=== PATIENT | female | born 1945 | race Two or more races ===

== ENCOUNTER 2021-01-06 06:46 | Day surgery (SDC) | payer OTHER ==
[~2021-01-06] VITALS: Ht 165.1 cm; Wt 104.3 kg
[~2021-01-06 06:46] MED LIST: ALPR0.254 PO; AMLO-489 PO; ASPI1TAB19 PO; ATOR20TA PO; HYDR-4296 PO; ISOS10TA2 PO; LISI40TA11 PO; METO-289 PO
[2021-01-06] MEDS ORDERED: MIDAZOLAM HCL 1MG/1ML-2 ML VIAL IV ONE (07:45)
[2021-01-06] MEDS ORDERED: LIDOCAINE VISCOUS 2% 15ML UD PO ONE (07:45)
[2021-01-06] MEDS ORDERED: diphenhdrAMINE HCL 50 MG/1 ML VL IV ONE (07:45)
[2021-01-06] MEDS ORDERED: fentaNYL CITRATE 100 MCG/2 ML VL IV ONE (07:45)
== END 2021-01-06 10:20 | disposition home or self-care (01) ==
LOC: CATH 06:46
PROVIDERS: ATTEND Internal Medicine Cardiovascular Disease
DX: Z01.810 Encounter for preprocedural cardiovascular examination (principal); I10 Essential (primary) hypertension; E78.5 Hyperlipidemia, unspecified; E66.9 Obesity, unspecified; Z87.891 Personal history of nicotine dependence; Z79.899 Other long term (current) drug therapy; Z79.82 Long term (current) use of aspirin; Z68.38 Body mass index [BMI] 38.0-38.9, adult; Z20.822 Contact with and (suspected) exposure to COVID-19
CPT/HCPCS: 93312; J2250; J3010; U0003; 99152

== ENCOUNTER 2021-01-08 06:48 | Day surgery (SDC) | payer OTHER ==
[~2021-01-08] VITALS: Ht 165.1 cm; Wt 104.3 kg
[2021-01-08] MEDS ORDERED: IODIXANOL 320MG/ML 100ML BTL IV ONE (07:32)
[2021-01-08] MEDS ORDERED: LIDOCAINE 2%HCL (LOCAL ANESTH.) INJ 20ML MDV ONE (07:32)
[2021-01-08] MEDS ORDERED: SODIUM CHL 0.9% 0 ML ONE (07:51)
[2021-01-08] MEDS ORDERED: ANGIOMAX 250 MG VIAL IV ONE (07:51)
[2021-01-08] MEDS ORDERED: fentaNYL CITRATE 100 MCG/2 ML VL ONE (07:51)
[2021-01-08] MEDS ORDERED: MIDAZOLAM HCL 1MG/1ML-2 ML VIAL ONE (07:51)
[2021-01-08] MEDS ORDERED: IOHEXOL 350 MG/ML 100ML IJ ONE (07:52)
[2021-01-08] MEDS ORDERED: VERAPAMIL 2.5MG/ML INJ 2ML VIAL IV ONE (07:52)
[2021-01-08] MEDS ORDERED: HEPARIN SODIUM (PORCINE) 5000 UNITS/ML 1ML VIAL ONE (07:52)
[2021-01-08] MEDS ORDERED: ONDANSETRON HCL 4 MG/2 ML VIAL ONE (08:14)
== END 2021-01-08 11:05 | disposition home or self-care (01) ==
LOC: CATH 06:48
PROVIDERS: ATTEND Internal Medicine Cardiovascular Disease
DX: R07.89 Other chest pain (principal); Z98.890 Other specified postprocedural states; Z79.899 Other long term (current) drug therapy; Z88.8 Allergy status to other drugs, medicaments and biological substances; Z88.5 Allergy status to narcotic agent; Z88.1 Allergy status to other antibiotic agents; Z88.2 Allergy status to sulfonamides; Z68.37 Body mass index [BMI] 37.0-37.9, adult
CPT/HCPCS: 93454; C1769; C1887; C1894; J1644; J2250; J2405; J3010; J7040; Q9967; 99152

== ENCOUNTER 2023-10-10 15:48 | Inpatient (IN) | payer OTHER ==
[~2023-10-10] VITALS: Ht 165.1 cm; Wt 163.0 kg
[~2023-10-10 15:48] MED LIST changes: -AMLO-489 PO; +AMLO1TAB22 PO; -HYDR-4296 PO; +HYDR25TA88 PO; -LISI40TA11 PO; +LISI40TA16 PO
[2023-10-10 16:32] LABS: Basophils # (auto) 0 10 ^3/uL (0-0.2); Basophils % (auto) 0.5 % (0.0-2.0); Eosinophils # (auto) 0.2 10 ^3/uL (0-0.8); Eosinophils % (auto) 2.5 % (0.0-7.0); Hemoglobin 10.8 g/dL (12.2-16.2); Lymphocytes # (auto) 1.7 10 ^3/uL (0.4-5.4); Lymphocytes % (auto) 19.9 % (10.0-50.0); Mean Corpuscular Hemoglobin 29.2 pg (28.0-32.0); Mean Corpuscular Hgb Conc. 31.8 g/dL (32.0-36.0); Monocytes # (auto) 0.7 10 ^3/uL (0-1.3); Monocytes % (auto) 8.4 % (0.0-12.0); Neutrophils # (auto) 5.7 10 ^3/uL (1.6-8.6); Neutrophils % (auto) 68.7 % (37.0-80.0); Red Cell Distribution Width 13.8 % (11.8-14.3); White Blood Cell 8.3 10^3/uL (4.4-10.8)
[2023-10-10 16:52] LABS: Alanine Aminotransferase 19 U/L (7-40); Albumin 4.2 g/dL (3.2-4.8); Alkaline Phosphatase 79 U/L (46-116); Anion Gap 8 (5-15); Aspartate Aminotransferase 16 U/L (13-40); BUN/Creatinine Ratio 18.5 (10.0-20.0); Blood Urea Nitrogen 17 mg/dL (9-23); Calcium 9.7 mg/dL (8.7-10.4); Carbon Dioxide 28 mmol/L (20-30); Chloride 105 mmol/L (98-107); Glucose 101 mg/dL (74-106); Magnesium 1.9 mg/dL (1.6-2.6); Potassium 4.4 mmol/L (3.5-5.1); Sodium 141 mmol/L (136-145)
[2023-10-10 16:53] LABS: Bilirubin, Total 0.5 mg/dL (0.2-1.0); Total Protein 6.6 g/dL (5.7-8.2)
[2023-10-10 20:56] LABS: Urine Bacteria NONE SEEN /hpf (None Seen); Urine Blood Negative /uL (Negative); Urine Clarity Clear (Clear); Urine Color Colorless (Yellow); Urine Protein, UAD 1+ (Negative); Urine Specific Gravity 1.009 (1.001-1.035); Urine Urobilinogen Normal (Negative); Urine WBC 5 /hpf (0 - 5)
[2023-10-10] MEDS ORDERED: MORPHINE SULFATE INJ 2 MG/ml SYRG IV PRN ×2 (21:45)
[2023-10-10] MEDS ORDERED: DOCUSATE SOD 100 MG CAP PO PRN (21:45)
[2023-10-10] MEDS ORDERED: NITROGLYCERIN 0.4 MG SL TAB SL PRN (21:45)
[2023-10-11] VITALS (11 sets, daily range): BP systolic 107–146; BP diastolic 39–58; PULSE 50–80; RESP 16–24; TEMP 97.2–97.8; O2SAT 94–98
[2023-10-11] MEDS: cefTRIAXone 1GM/50ML D5W 50 ML IV SCH (00:48)
[2023-10-11] MEDS: ACETAMINOPHEN 325 MG TAB PO PRN (00:48)
[2023-10-11] MEDS: NITROGLYCERIN 2% OINT 1GM PKG TD ONE (00:58)
[2023-10-11] MEDS ORDERED: cloNIDine HCL 0.1 MG TAB PO PRN (02:00)
[2023-10-11] MEDS: hydrALAZINE HCL 20 MG/ML VL IV PRN (02:04)
[2023-10-11 06:09] LABS: Basophils # (auto) 0 10 ^3/uL (0-0.2); Basophils % (auto) 0.3 % (0.0-2.0); Eosinophils # (auto) 0.2 10 ^3/uL (0-0.8); Eosinophils % (auto) 1.7 % (0.0-7.0); Hematocrit 31.2 % (36.0-46.0); Hemoglobin 10.1 g/dL (12.2-16.2); Lymphocytes # (auto) 1.1 10 ^3/uL (0.4-5.4); Lymphocytes % (auto) 12.4 % (10.0-50.0); Mean Corpuscular Hemoglobin 29.4 pg (28.0-32.0); Mean Corpuscular Hgb Conc. 32.5 g/dL (32.0-36.0); Mean Corpuscular Volume 90.6 fL (80.0-100.0); Monocytes # (auto) 0.7 10 ^3/uL (0-1.3); Monocytes % (auto) 7.6 % (0.0-12.0); Nucleated Red Blood Cells % 0.2 %; Red Blood Cells 3.44 10^6/uL (4.0-5.20); Red Cell Distribution Width 13.4 % (11.8-14.3); White Blood Cell 8.9 10^3/uL (4.4-10.8)
[2023-10-11 06:19] LABS: Chloride 105 mmol/L (98-107); Sodium 139 mmol/L (136-145)
[2023-10-11 06:20] LABS: Anion Gap 7 (5-15); Calcium 9.5 mg/dL (8.7-10.4); Carbon Dioxide 27 mmol/L (20-30)
[2023-10-11 06:25] LABS: BUN/Creatinine Ratio 21.3 (10.0-20.0); Blood Urea Nitrogen 17 mg/dL (9-23); Glucose 100 mg/dL (74-106)
[2023-10-11 08:10] LABS: INR 1.14 (0.9-1.15); Partial Thromboplastin Time 30.5 SEC (24.5-34.5); Prothrombin Time 11.9 sec (9.3-11.8)
[2023-10-11] MEDS: ASPirin 81 mg TAB PO SCH (09:46)
[2023-10-11] MEDS: ENOXAPARIN SOD 40 MG/0.4 ML SYRINGE SC SCH (09:46)
[2023-10-11] MEDS: METOPROLOL SUCCINATE XL 50 MG TAB PO SCH (09:48)
[2023-10-11] MEDS: LIDOCAINE 2%HCL (LOCAL ANESTH.) INJ 20ML MDV ONE (12:05)
[2023-10-11] MEDS: IODIXANOL 320MG/ML 100ML BTL IV ONE (12:06)
[2023-10-11] MEDS: fentaNYL CITRATE 100 MCG/2 ML VL ONE (12:21)
[2023-10-11] MEDS: VERAPAMIL 2.5MG/ML INJ 2ML VIAL IV ONE (12:21)
[2023-10-11] MEDS: MIDAZOLAM HCL 2MG/2ML 2ml VIAL (1mg/ml) ONE (12:22)
[2023-10-11] MEDS: hydrALAZINE HCL 20 MG/ML VL ONE (12:53)
[2023-10-11] MEDS: ONDANSETRON HCL 4 MG/2 ML VIAL ONE (12:53)
[2023-10-11] MEDS: HEPARIN SODIUM (PORCINE) 5000 UNITS/ML 1ML VIAL ONE (12:53)
[2023-10-11] MEDS: ONDANSETRON HCL 4 MG/2 ML VIAL IV PRN (20:10)
[2023-10-12] VITALS (7 sets, daily range): BP systolic 119–154; BP diastolic 49–71; PULSE 49–56; RESP 16–20; TEMP 97.7–98.6; O2SAT 91–98
[2023-10-12] MEDS: ATORVASTATIN 20 MG TAB PO SCH (05:47)
[2023-10-12 05:59] LABS: Basophils # (auto) 0 10 ^3/uL (0-0.2); Basophils % (auto) 0.4 % (0.0-2.0); Eosinophils # (auto) 0.1 10 ^3/uL (0-0.8); Eosinophils % (auto) 1.3 % (0.0-7.0); Hematocrit 30.1 % (36.0-46.0); Hemoglobin 9.7 g/dL (12.2-16.2); Lymphocytes # (auto) 1.1 10 ^3/uL (0.4-5.4); Lymphocytes % (auto) 15.1 % (10.0-50.0); Mean Corpuscular Hemoglobin 29.9 pg (28.0-32.0); Mean Corpuscular Hgb Conc. 32.3 g/dL (32.0-36.0); Mean Corpuscular Volume 92.5 fL (80.0-100.0); Monocytes # (auto) 0.8 10 ^3/uL (0-1.3); Monocytes % (auto) 10.8 % (0.0-12.0); Neutrophils # (auto) 5.5 10 ^3/uL (1.6-8.6); Neutrophils % (auto) 72.4 % (37.0-80.0); Red Blood Cells 3.25 10^6/uL (4.0-5.20); Red Cell Distribution Width 13.7 % (11.8-14.3); White Blood Cell 7.5 10^3/uL (4.4-10.8)
[2023-10-12 06:01] LABS: Chloride 105 mmol/L (98-107); Potassium 4.4 mmol/L (3.5-5.1); Sodium 138 mmol/L (136-145)
[2023-10-12 06:02] LABS: Anion Gap 6 (5-15); Calcium 9.4 mg/dL (8.7-10.4); Carbon Dioxide 27 mmol/L (20-30)
[2023-10-12 06:07] LABS: BUN/Creatinine Ratio 16.4 (10.0-20.0); Blood Urea Nitrogen 19 mg/dL (9-23); Glucose 83 mg/dL (74-106)
[2023-10-12] MEDS ORDERED: LISI20TA56 PO (14:17)
[2023-10-12] MEDS ORDERED: GABA-1308 PO (14:18)
[2023-10-13] VITALS (13 sets, daily range): BP systolic 124–168; BP diastolic 52–90; PULSE 50–76; RESP 14–18; TEMP 97.8–98.5; O2SAT 90–98
[2023-10-13 06:50] LABS: Basophils # (auto) 0 10 ^3/uL (0-0.2); Basophils % (auto) 0.6 % (0.0-2.0); Eosinophils # (auto) 0.2 10 ^3/uL (0-0.8); Eosinophils % (auto) 2.6 % (0.0-7.0); Hematocrit 30.7 % (36.0-46.0); Lymphocytes # (auto) 1.7 10 ^3/uL (0.4-5.4); Mean Corpuscular Hemoglobin 29.8 pg (28.0-32.0); Mean Corpuscular Hgb Conc. 32.4 g/dL (32.0-36.0); Mean Corpuscular Volume 92.1 fL (80.0-100.0); Monocytes # (auto) 0.8 10 ^3/uL (0-1.3); Monocytes % (auto) 10.7 % (0.0-12.0); Neutrophils # (auto) 4.5 10 ^3/uL (1.6-8.6); Neutrophils % (auto) 62.1 % (37.0-80.0); Red Blood Cells 3.34 10^6/uL (4.0-5.20); Red Cell Distribution Width 13.5 % (11.8-14.3); White Blood Cell 7.3 10^3/uL (4.4-10.8)
[2023-10-13 06:52] LABS: Chloride 104 mmol/L (98-107); Potassium 4.3 mmol/L (3.5-5.1); Sodium 137 mmol/L (136-145)
[2023-10-13 06:53] LABS: Anion Gap 5 (5-15); Carbon Dioxide 28 mmol/L (20-30)
[2023-10-13 06:54] LABS: Calcium 9.3 mg/dL (8.7-10.4)
[2023-10-13 06:59] LABS: BUN/Creatinine Ratio 19.2 (10.0-20.0); Blood Urea Nitrogen 24 mg/dL (9-23); Glucose 98 mg/dL (74-106)
[2023-10-13] MEDS: fentaNYL CITRATE 100 MCG/2 ML VL ONE (12:57)
[2023-10-13] MEDS: VANCOMYCIN HCL 1000 MG VL ONE (12:57)
[2023-10-13] MEDS: VANCOMYCIN 1GM/200ML 200 ML IV ONE (12:58)
[2023-10-13] MEDS: LIDOCAINE 2%HCL (LOCAL ANESTH.) INJ 20ML MDV ONE (12:58)
[2023-10-13] MEDS: MIDAZOLAM HCL 2MG/2ML 2ml VIAL (1mg/ml) ONE (12:58)
[2023-10-13] MEDS: ONDANSETRON HCL 4 MG/2 ML VIAL ONE (13:31)
[2023-10-13] MEDS: METOPROLOL TARTRATE 1MG/1ML-5ML VIAL IV ONE (14:04)
[2023-10-13] MEDS: hydrALAZINE HCL 20 MG/ML VL ONE (14:19)
[2023-10-14] MEDS: HYDROcodone-ACET 5/325MG TAB PO PRN (02:15)
[2023-10-14 05:15] VITALS: BP 134/47; PULSE 71; RESP 18; TEMP 98; O2SAT 93
[2023-10-14 07:39] LABS: Basophils # (auto) 0 10 ^3/uL (0-0.2); Basophils % (auto) 0.4 % (0.0-2.0); Eosinophils # (auto) 0.1 10 ^3/uL (0-0.8); Eosinophils % (auto) 0.8 % (0.0-7.0); Hematocrit 30.3 % (36.0-46.0); Hemoglobin 9.6 g/dL (12.2-16.2); Lymphocytes # (auto) 0.7 10 ^3/uL (0.4-5.4); Lymphocytes % (auto) 9.1 % (10.0-50.0); Mean Corpuscular Hemoglobin 29.8 pg (28.0-32.0); Mean Corpuscular Hgb Conc. 31.9 g/dL (32.0-36.0); Mean Corpuscular Volume 93.4 fL (80.0-100.0); Monocytes # (auto) 0.6 10 ^3/uL (0-1.3); Monocytes % (auto) 8.3 % (0.0-12.0); Neutrophils # (auto) 6.3 10 ^3/uL (1.6-8.6); Neutrophils % (auto) 81.4 % (37.0-80.0); Nucleated Red Blood Cells % 0.1 %; Red Blood Cells 3.24 10^6/uL (4.0-5.20); Red Cell Distribution Width 13.7 % (11.8-14.3); White Blood Cell 7.8 10^3/uL (4.4-10.8)
[2023-10-14 07:46] LABS: Anion Gap 5 (5-15); Carbon Dioxide 28 mmol/L (20-30); Chloride 107 mmol/L (98-107); Potassium 4.9 mmol/L (3.5-5.1); Sodium 140 mmol/L (136-145)
[2023-10-14 07:52] LABS: BUN/Creatinine Ratio 15.7 (10.0-20.0); Blood Urea Nitrogen 14 mg/dL (9-23); Glucose 107 mg/dL (74-106)
[2023-10-14 08:00] VITALS: PULSE 69; PULSE 72; RESP 16; O2SAT 93
[2023-10-14 09:00] VITALS: BP 155/61; PULSE 72; RESP 16; TEMP 98; O2SAT 93
[2023-10-14 12:48] VITALS: BP 144/66; PULSE 63; RESP 18; TEMP 97.7; O2SAT 93
[2023-10-14 13:00] VITALS: BP 152/45; PULSE 62; RESP 16; TEMP 97.7; O2SAT 93
== END 2023-10-14 14:50 | disposition home or self-care (01) | DRG 260 ==
LOC: ER 15:48 → TELE 21:48 → TELE-WESTW 10-11 09:03
PROVIDERS: ADMIT Nurse Practitioner Family; ATTEND Internal Medicine
PROC: 4A023N7 Measurement of Cardiac Sampling and Pressure, Left Heart, Percutaneous Approach (ICD-10-PCS; principal; 2023-10-11)
PROC: B211YZZ Fluoroscopy of Multiple Coronary Arteries using Other Contrast (ICD-10-PCS; 2023-10-11)
PROC: B215YZZ Fluoroscopy of Left Heart using Other Contrast (ICD-10-PCS; 2023-10-11)
PROC: 02WA3MZ Revision of Cardiac Lead in Heart, Percutaneous Approach (ICD-10-PCS; 2023-10-13)
DX: T82.110A Breakdown (mechanical) of cardiac electrode, initial encounter (principal); I50.31 Acute diastolic (congestive) heart failure; I25.110 Atherosclerotic heart disease of native coronary artery with unstable angina pectoris; I44.2 Atrioventricular block, complete; I47.10 Supraventricular tachycardia, unspecified; I11.0 Hypertensive heart disease with heart failure; E78.5 Hyperlipidemia, unspecified; Y84.8 Other medical procedures as the cause of abnormal reaction of the patient, or of later complication, without mention of misadventure at the time of the procedure; Z82.49 Family history of ischemic heart disease and other diseases of the circulatory system; Z95.0 Presence of cardiac pacemaker; Z95.2 Presence of prosthetic heart valve; Y92.89 Other specified places as the place of occurrence of the external cause
CPT/HCPCS: 33220; 36415; 71045; 80048; 80053; 81001; 83735; 83880; 84484; 85025; 85610; 85730; 87081; 93005; 93306; 93458; 93970; 99152; G0378; J2250; J2405; Q9967